=== PATIENT | female | born 1960 | race Caucasian/White ===

== ENCOUNTER 2018-09-15 11:45 | Emergency (ER) | payer OTHER ==
[~2018-09-15] VITALS: Ht 157.5 cm; Wt 77.1 kg
[2018-09-15] MEDS ORDERED: HYDROMORPHONE 1 MG/1 ML DISP.SYRIN IV ONE (12:15)
[2018-09-15] MEDS ORDERED: ONDANSETRON IV *ER 4 MG/2 ML VIAL IV ONE (12:15)
[2018-09-15] MEDS ORDERED: HYDROMORPHONE 1 MG/1 ML DISP.SYRIN ONE (12:17)
[2018-09-15] MEDS ORDERED: ONDANSETRON 4 MG/2 ML VIAL ONE (12:17)
[2018-09-15] MEDS ORDERED: LOSA1TAB36 PO (12:24)
[2018-09-15] MEDS ORDERED: METO25TA6 PO (12:24)
[2018-09-15] MEDS ORDERED: METOCLOPRAMIDE HCL 10 MG/2 ML VIAL IV ONE (12:45)
[2018-09-15] MEDS ORDERED: METOCLOPRAMIDE HCL 10 MG/2 ML VIAL ONE (12:47)
--- NOTE | 2018-09-15 12:50 | NUR ---
patient reassess c/o nausea reglan ivp given will continue to monitor.
[2018-09-15 13:20] VITALS: BP 128/77
--- NOTE | 2018-09-15 13:20 | NUR ---
Patient discharged to home in stable conditon. Written and verbal after care instructions given. Patient verbalizes understanding of instructions.pt walks in steady gait. pt with family member. pt not driving
[2018-09-15] MEDS ORDERED: ONDANSETRON ODT 4 MG TAB.RAPDIS ONE (13:23)
--- NOTE | 2018-09-15 13:26 | NUR ---
as the pt moved from bed to leave the hospital, pt became nauseated and threw up. notified. medicated the pt.
--- NOTE | 2018-09-15 13:27 | NUR ---
pt ready to go home. walks in steady gait.
[2018-09-15] MEDS ORDERED: ONDANSETRON ODT 4 MG TAB.RAPDIS SL ONE (13:30)
== END 2018-09-15 13:28 | disposition home or self-care (01) ==
LOC: ER 11:47
DX: R51 Headache (principal); I10 Essential (primary) hypertension; Z88.0 Allergy status to penicillin
CPT/HCPCS: 93005; 96374; 96375; 99284; J1170; J2405; J2765; A4663; Q0162

== ENCOUNTER 2020-04-05 12:22 | Emergency (ER) | payer OTHER ==
[~2020-04-05] VITALS: Ht 165.1 cm; Wt 77.1 kg
[~2020-04-05 12:22] MED LIST: LOSA1TAB36 PO; METO25TA6 PO
[2020-04-05 12:59] LABS: BASOPHILS % (AUTO) 0.4 % (0.0-2.0); EOSINOPHILS % (AUTO) 0.4 % (0.0-7.0); HEMATOCRIT 36.5 % (31.2-41.9); HEMOGLOBIN 12.2 g/dL (10.9-14.3); LYMPHOCYTES # (AUTO) 2.4 K/uL (20.0-40.0); LYMPHOCYTES % (AUTO) 26.8 % (20.5-51.5); MEAN CORPUSCULAR HEMOGLOBIN 27.6 uug (24.7-32.8); MEAN CORPUSCULAR HGB CONC 33 g/dL (32.3-35.6); MEAN CORPUSCULAR VOLUME 82.7 fL (75.5-95.3); MONOCYTES # (AUTO) 0.4 K/uL (2.0-10.0); MONOCYTES % (AUTO) 4.1 % (0.0-11.0); NEUTROPHILS # (AUTO) 6.2 K/uL (1.8-8.9); NEUTROPHILS % (AUTO) 68.3 % (38.5-71.5); PLATELET COUNT (AUTO) 352 K/uL (179-408); RED BLOOD CELL COUNT(AUTO) 4.41 MIL/uL (3.63-4.92)
[2020-04-05] MEDS ORDERED: MECLIZINE HCL 25 MG TABLET PO ONE (13:00)
[2020-04-05] MEDS ORDERED: MECLIZINE HCL 25 MG TABLET ONE (13:00)
[2020-04-05] MEDS ORDERED: ONDANSETRON 4 MG/2 ML VIAL IV ONE ×2 (13:00→15:00)
[2020-04-05] MEDS ORDERED: ONDANSETRON 4 MG/2 ML VIAL ONE ×2 (13:00→14:59)
[2020-04-05] MEDS ORDERED: IV NORMAL SALINE 1000 ML BAG IV ONE (13:00)
[2020-04-05 13:10] LABS: CREATININE 0.8 mg/dL (0.6-1.3); POTASSIUM 3.8 mmol/L (3.5-5.1)
[2020-04-05 13:13] LABS: BILIRUBIN,DIRECT 0.1 mg/dL (0.0-0.2); BILIRUBIN,TOTAL 0.3 mg/dL (0.2-1.0)
--- NOTE | 2020-04-05 13:36 | NUR ---
PATIENT STATES NO NAUSEA AT THIS TIME WILL GIVE PO MEDS. DR OSBORN AWARE.
--- NOTE | 2020-04-05 13:37 | NUR ---
DR OSBORN AT BEDSIDE WITH [employer] TRANSLATION FOR [facility].
[2020-04-05] MEDS ORDERED: IV NS 1000 ML 1,000 ML IV ONE (13:45)
--- NOTE | 2020-04-05 14:30 | NUR ---
PATIENT ASSISTED BACK TO BED. PLACE ON MONITOR. FALL PRECAUTION DONE. WILL CONTINUE TO MONITOR.
--- NOTE | 2020-04-05 14:30 | NUR ---
PATIENT AMBULATED TO BATHROOM STEADY GAIT NO C/O CP. NO SOB. PATIENT STARTED FEELING DIZZY AND WITH NAUSEA AFTER COMING BACK FROM BATHROOM.
--- NOTE | 2020-04-05 14:30 | NUR ---
DR OSBORN MADE AWARE PATIENT C/O DIZZINESS AND NAUSEA.
[2020-04-05 14:38] LABS: *BILIRUBIN,URIN NEGATIVE (NEGATIVE); *BLOOD, URINE NEGATIVE (NEGATIVE); *CLARITY,URINE CLEAR (CLEAR); *COLOR,URINE YELLOW (YELLOW); *KETONES,URINE NEGATIVE (NEGATIVE); *UROBILINOGEN,URINE 0.2 E.U./dl (NORMAL); LEUKOCYTE ESTERASE ,URINE NEGATIVE (NEGATIVE); NITRITE, URINE NEGATIVE (NEGATIVE); PH,URINE 8.5 (5.0-8.0); UGLUCOSE NEGATIVE (NEGATIVE)
--- NOTE | 2020-04-05 16:14 | NUR ---
PATIENT WAS ABLE TO TOLERATE 50 ML PO FLUIDS NO C/O ANY N/V. WILL CONTINUE TO MONITOR. DR OSBORN MADE AWARE.
--- NOTE | 2020-04-05 16:17 | NUR ---
Patient discharged to home in stable condition. Written and verbal after care instructions given. Patient verbalizes understanding of instructions. Stressed follow up or return to ER for worsening s/s.
[2020-04-05 16:21] VITALS: BP 122/57
== END 2020-04-05 16:21 | disposition home or self-care (01) ==
LOC: ER 12:22
DX: R42 Dizziness and giddiness (principal); R11.10 Vomiting, unspecified; R51 Headache; Z79.899 Other long term (current) drug therapy; I10 Essential (primary) hypertension
CPT/HCPCS: 36415; 70450; 80048; 80076; 81001; 85025; 85651; 85730; 93005; 96361; 96374; 96376; 99285; J2405 ×2; A4663; J7030; J8597

== ENCOUNTER 2020-05-22 14:18 | Emergency (ER) | payer OTHER ==
[~2020-05-22] VITALS: Ht 165.1 cm; Wt 77.1 kg
--- NOTE | 2020-05-22 14:36 | NUR ---
Dr. Chaudhari at bedside with [employer] to translate for patient
[2020-05-22] MEDS ORDERED: LORAZEPAM 2 MG/1 ML VIAL IV ONE (14:45)
[2020-05-22] MEDS ORDERED: ONDANSETRON 4 MG/2 ML VIAL IV ONE (14:45)
[2020-05-22] MEDS ORDERED: IV NORMAL SALINE 1000 ML BAG IV ONE (14:45)
[2020-05-22] MEDS ORDERED: LORAZEPAM 2 MG/1 ML VIAL ONE (14:52)
[2020-05-22] MEDS ORDERED: ONDANSETRON 4 MG/2 ML VIAL ONE (14:52)
--- NOTE | 2020-05-22 15:45 | NUR ---
Patient discharged to home in stable condition. Written and verbal after care instructions given. Patient verbalizes understanding of instructions. Stressed follow up or return to ER for worsening s/s. NAD noted. Patient taken to Uber ride. Patient able to ambulate from w/c to car.
[2020-05-22 16:06] VITALS: BP 122/75
== END 2020-05-22 15:45 | disposition home or self-care (01) ==
LOC: ER 14:18
DX: H83.09 Labyrinthitis, unspecified ear (principal); I10 Essential (primary) hypertension; Z79.899 Other long term (current) drug therapy; E11.9 Type 2 diabetes mellitus without complications
CPT/HCPCS: 96361; 96374; 96375; 99284; J2060; J2405; A4663; J7030

== ENCOUNTER 2021-08-13 08:55 | Emergency (ER) | payer OTHER ==
[~2021-08-13] VITALS: Ht 165.1 cm; Wt 77.1 kg
[2021-08-13 09:28] LABS: MEAN CORPUSCULAR HEMOGLOBIN 28.8 uug (24.7-32.8); MEAN CORPUSCULAR VOLUME 85.1 fL (75.5-95.3); PLATELET COUNT (AUTO) 397 K/uL (179-408)
[2021-08-13] MEDS ORDERED: ONDANSETRON ODT 4 MG TAB.RAPDIS SL ONE (09:30)
[2021-08-13] MEDS ORDERED: MECLIZINE HCL 25 MG TABLET PO ONE (09:30)
[2021-08-13] MEDS ORDERED: ONDANSETRON ODT 4 MG TAB.RAPDIS ONE (09:35)
[2021-08-13] MEDS ORDERED: MECLIZINE HCL 25 MG TABLET ONE (09:36)
[2021-08-13 09:37] LABS: CARBON DIOXIDE 27 mmol/L (21-32); CHLORIDE 105 mmol/L (98-107); CREATININE 0.7 mg/dL (0.6-1.3); GLUCOSE 109 mg/dL (74-106); POTASSIUM 4.4 mmol/L (3.5-5.1); UREA NITROGEN, BLOOD 13 mg/dL (7-18)
[2021-08-13 09:43] LABS: ALANINE AMINOTRANSFERASE 40 U/L (14-59); ALKALINE PHOSPHATASE 73 U/L (50-136); ASPARTATE AMINOTRANSFERASE 25 U/L (15-37); BILIRUBIN,TOTAL 0.3 mg/dL (0.2-1.0); TOTAL PROTEIN, SERUM 8.5 g/dL (6.4-8.2)
[2021-08-13 11:24] LABS: BILIRUBIN,DIRECT < 0.1 mg/dL (0.0-0.2)
[2021-08-13] MEDS ORDERED: LORAZEPAM 2 MG/1 ML VIAL IV ONE (11:45)
[2021-08-13] MEDS ORDERED: IV NS 1000 ML 1,000 ML IV ONE (11:45)
[2021-08-13] MEDS ORDERED: LORAZEPAM 2 MG/1 ML VIAL ONE (12:06)
--- NOTE | 2021-08-13 13:39 | NUR ---
IV removed intact, site ok, bandaged. had conversation with pt via translation phone (felt hat flanging operator #[phone]) regarding going AMA. Pt signed out AMA. Pt's escorted pt out.
== END 2021-08-13 13:57 | disposition left against medical advice (07) ==
LOC: ER 08:55
DX: R42 Dizziness and giddiness (principal); I45.10 Unspecified right bundle-branch block; Z88.0 Allergy status to penicillin; I10 Essential (primary) hypertension; Z20.822 Contact with and (suspected) exposure to COVID-19; Z53.29 Procedure and treatment not carried out because of patient's decision for other reasons
CPT/HCPCS: 36415; 70450; 80048; 80076; 84484; 85025; 85730; 87426; 93005; 96361; 96374; 99285; J2060; 70030-TC; A4663; J7030; J8597; Q0162